=== PATIENT | male | born 1995 | race Two or more races ===

== ENCOUNTER 2023-05-12 02:24 | Emergency (ER) | payer OTHER ==
[~2023-05-12] VITALS: Ht 180.3 cm; Wt 95.0 kg
[2023-05-12 02:32] VITALS: BP 116/71
[2023-05-12] MEDS ORDERED: BACITRACIN ZINC OINT UDPKT TOP ONE (03:30)
[2023-05-12] MEDS ORDERED: BO1 TP (03:43)
[2023-05-12] MEDS ORDERED: ACET-2708 PO (03:43)
== END 2023-05-12 04:20 | disposition home or self-care (01) ==
LOC: ER 02:38
DX: S31.21XA Laceration without foreign body of penis, initial encounter (principal); X58.XXXA Exposure to other specified factors, initial encounter; Y93.89 Activity, other specified; Y92.89 Other specified places as the place of occurrence of the external cause; Y99.8 Other external cause status
CPT/HCPCS: 99282